=== PATIENT | female | born 1950 | race Caucasian/White ===

== ENCOUNTER 2020-03-25 07:29 | Day surgery (SDC) | payer MEDICARE, BC ==
[2020-03-25] MEDS ORDERED: Midazolam 1 MG/ML 2 ML SDV IV ONE (07:30)
[2020-03-25] MEDS ORDERED: Sodium Chloride 0.9% 10 ML Syringe FLUSH PRN (07:30)
[2020-03-25] MEDS ORDERED: Glycopyrrolate 0.2 MG/ML 5 ML MDV IV ONE (07:30)
[2020-03-25] MEDS ORDERED: fentaNYL 100 MCG/2 ML SDV IV ONE (07:30)
[2020-03-25] MEDS ORDERED: Ondansetron 4 MG/2 ML SDV IVPUSH ONE (07:30)
[2020-03-25] MEDS ORDERED: Rocuronium 50 MG/5 ML Vial IV ONE (07:30)
[2020-03-25] MEDS ORDERED: Ketorolac 30 MG/ML SDV IVPUSH ONE (07:30)
[2020-03-25] MEDS ORDERED: diphenhydrAMINE 50 MG/ML SDV IVPUSH ONE (07:30)
[2020-03-25] MEDS ORDERED: Dexamethasone 4 MG/ML 5 ML MDV IVPUSH ONE (07:30)
[2020-03-25] MEDS ORDERED: Neostigmine Methylsulfate 10 MG/10 ML MDV IVPUSH ONE (07:30)
[2020-03-25] MEDS ORDERED: Propofol 200 MG/20 ML SDV IV ONE (07:30)
[2020-03-25] MEDS: Lactated Ringers 1,000 ML IV SCH (07:58)
[2020-03-25] MEDS: cefOXitin 1 GM Vial IVPUSH ONE (09:35)
[2020-03-25] MEDS: Bupivacaine 0.5% 30 ML SDV INJECT ONE (10:00)
[2020-03-25] MEDS: Lidocaine 1% with EPINEPHrine 1:100,000 20 ML MDV INJECT ONE (10:00)
--- NOTE | 2020-03-25 10:58 | PCM.OPNOTE ---
- General Post-Op/Procedure Note Date of Surgery/Procedure: 03/25/20 Operative Procedure(s): lap cholecystectomy Findings: critical view obtained. normal size cystic duct cholelithiasis Pre Op Diagnosis: cholecystitis without infection or obstruction Post-Op Diagnosis: Same Anesthesia Technique: General ET Tube, Local (6 ml 1 % lido with epi/0.5% buvipicaine) Primary Surgeon: Kaiden Burns Anesthesia Provider: Mee Barriga Pathology: gallbladder and contents EBL in mLs: 10 Complications: None Condition: Good Free Text/Narrative:: see dictation #[id number]
[2020-03-25 12:27] VITALS: BP 121/70; PULSE 58
--- NOTE | 2020-03-25 13:24 | OR ---
DATE OF OPERATION: 03/25/2020 SURGEON: Kaiden Burns MD PROCEDURE PERFORMED: Laparoscopic cholecystectomy. PREOPERATIVE DIAGNOSIS: Cholelithiasis without cholecystitis or obstruction. POSTOPERATIVE DIAGNOSIS: Cholelithiasis without cholecystitis or obstruction. INDICATIONS FOR PROCEDURE: This is a 69-year-old white female, who essentially had a history of some vague abdominal discomfort in the epigastric region. She is noted on ultrasound rather to have a gallbladder packed with gallstones. Initially, it was thought her symptoms were consistent with constipation. However, the constipation has been successfully treated, and the patient continues to have this abdominal discomfort in the epigastric region. She is therefore offered and accepted a laparoscopic cholecystectomy. DESCRIPTION OF OPERATION: After an excellent general anesthetic was administered via endotracheal tube, the patient was prepped and draped in usual sterile manner. A 1:1 mixture of 1% lidocaine with epinephrine and 0.5% bupivacaine was used to infiltrate the area just above the umbilicus. A #15 scalpel blade was carried out to make an incision. Blunt dissection was then carried out to expose the midline fascia, and 2 stay sutures of 0 Vicryl were placed on either side of midline fascia which was then elevated. The fascia was incised, and the abdominal cavity was entered. After digital palpation to ensure no adhesions, a 10.5 balloon Sakina trocar was inserted into the patient's abdomen, which was then insufflated to 15 mmHg using carbon dioxide. Under direct visualization, three 5 mm ports were placed, 1 in the midline epigastrium and 2 below the right costal margin. This was done by infiltrating more local, making a stab incision with a #15 scalpel blade and then inserting the trocars. Having been mentioned, 6 mL of the local mixture was used. The gallbladder was then grasped. There were some thin filmy adhesions on the dome of the gallbladder between the gallbladder and the colon. These were carefully taken down using sharp dissection. The colon was carefully inspected. After removing the adhesions, there was no evidence of any injury to the intestinal wall and lifting up the adhesions, there was plenty of distance between the colon and the adhesions itself. We were able to grab the infundibulum, and then using a Layne dissector, blunt dissection was carried out exposing the cystic duct. There was a blood vessel anterior to the cystic duct, and in dissecting this blood vessel, which was roughly a millimeter in diameter, it was avulsed. There was arterial bleeding encountered. This was judiciously handled by careful placement of 2 clips after grasping the bleeding end. Further dissection failed to reveal any other vessel that could be identified as the cystic artery, so this appeared to be an aberrant vessel. After confirming the diagnosis of the cystic duct, 2 clips were placed proximally on the cystic duct and 1 distally. The cystic duct was then transected. Careful L-hook cautery dissection was then carried out dissecting the gallbladder free from the gallbladder fossa. The specimen was passed into a specimen bag and delivered out through the umbilical port. We did have to extend the fascial incision slightly as well as the skin incision to deliver the contents. This was done without difficulty. After delivering the gallbladder, the fascial defect was partially closed with a mqqhnk-sw-yahzw 0 Vicryl to allow us to reinsert the Sakina trocar and resume our peritoneum. The area was irrigated. The gallbladder fossa itself was free of any bleeding; however, there were several small bleeding points noted along where the adhesions had been taken down from the cystic duct and cystic artery as well as along the colon where the filmy adhesions had been taken down. Jess AH was then applied to these areas with excellent hemostasis, and this was catalog number [id number], lot #[id number] with an expiration date of 03/09/2022. After assuring that there was no further bleeding, the trocars were removed. After the patient was flattened out, the pneumoperitoneum was released. The fascial defect in the periumbilical area was closed with a qnmkso-ya-vjqui 0 Vicryl, 4-0 Vicryl was used to close the skin. Needle, sponge, and instrument counts were reported as correct. The patient was taken to Recovery in good condition. /[id number] /MODL
== END 2020-03-25 12:05 | disposition home or self-care (01) ==
LOC: FB.SDS 07:29
PROVIDERS: ATTEND Surgery
DX: K80.10 Calculus of gallbladder with chronic cholecystitis without obstruction (principal); E03.9 Hypothyroidism, unspecified; Z79.890 Hormone replacement therapy; Z79.899 Other long term (current) drug therapy; Z88.8 Allergy status to other drugs, medicaments and biological substances; Z87.891 Personal history of nicotine dependence
CPT/HCPCS: 00790; 47562; 88304; 94150; J0694; J1100; J1200; J1885; J2250; J2405; J2704; J2710; J3010; J3490; J7120

== ENCOUNTER 2020-06-10 07:22 | Day surgery (SDC) | payer MEDICARE, BC ==
[2020-06-10] MEDS ORDERED: Propofol 200 MG/20 ML SDV IV ONE (07:23)
[2020-06-10] MEDS ORDERED: Sodium Chloride 0.9% 10 ML Syringe FLUSH PRN (07:30)
[2020-06-10] MEDS ORDERED: Lactated Ringers 1,000 ML IV SCH (07:30)
--- NOTE | 2020-06-10 09:24 | PCM.OPNOTE ---
- General Post-Op/Procedure Note Date of Surgery/Procedure: 06/10/20 Operative Procedure(s): c scope with cold forceps biopsy Findings: descending colon polyp Pre Op Diagnosis: hx of colon polyps Post-Op Diagnosis: descending colon polyp Anesthesia Technique: MAC Primary Surgeon: Kaiden Burns Anesthesia Provider: Camacho Judd Pathology: colon polyp descending colon Complications: None Condition: Good Free Text/Narrative:: see dictation
[2020-06-10 10:06] VITALS: BP 136/72; PULSE 64
--- NOTE | 2020-06-10 11:30 | OR ---
DATE OF OPERATION: 06/10/2020 SURGEON: Kaiden Burns MD PROCEDURE PERFORMED: Colonoscopy with cold forceps biopsy. PREOPERATIVE DIAGNOSIS: Personal history of colon polyps. POSTOPERATIVE DIAGNOSIS: Polyp of the descending colon. INDICATIONS FOR PROCEDURE: This is a 69-year-old white female who has had a history of colon polyps in the past. She presents now for followup scope. DESCRIPTION OF OPERATION: After an excellent IV sedation was administered, digital rectal exam was performed. No marked abnormality was noted. Flexible colonoscope was inserted and advanced to the cecum. The prep, there were areas of liquid stool. We were, however, able to irrigate it completely and get an excellent view of the colonic mucosa. After identifying the cecum by its usual anatomic markers as well as noting the light through the right lower quadrant, the scope was slowly withdrawn. The following findings were noted. Ascending colon unremarkable. Transverse colon unremarkable. Descending colon, at the distal descending colon, small 5 mm polyp, biopsied with cold biopsy forceps and sent for permanent. Sigmoid and rectum unremarkable. The patient tolerated procedure well, was taken to recovery. Results will be sent via letter. /[id number] /MODL
== END 2020-06-10 10:09 | disposition home or self-care (01) ==
LOC: FB.SDS 07:22
PROVIDERS: ATTEND Surgery
DX: Z12.11 Encounter for screening for malignant neoplasm of colon (principal); D12.4 Benign neoplasm of descending colon; E03.9 Hypothyroidism, unspecified; Z79.899 Other long term (current) drug therapy; Z88.8 Allergy status to other drugs, medicaments and biological substances; Z90.49 Acquired absence of other specified parts of digestive tract; Z98.890 Other specified postprocedural states; Z87.891 Personal history of nicotine dependence
CPT/HCPCS: 00812-QZ; 88305; J2704; J7120

== ENCOUNTER 2021-10-01 16:49 | Emergency (ER) | payer MEDICARE, BC ==
[2021-10-01 17:46] LABS: ESTIMATED GFR 49 mL/min (>60)
[2021-10-01 18:07] VITALS: BP 132/69; PULSE 62
[2021-10-01] MEDS ORDERED: Potassium Chloride 20 MEQ Tab.ER PO ONE (18:16)
== END 2021-10-01 19:00 | disposition home or self-care (01) ==
LOC: FB.ED 16:49
DX: R53.81 Other malaise (principal); E87.6 Hypokalemia; E87.0 Hyperosmolality and hypernatremia; R94.6 Abnormal results of thyroid function studies; R82.81 Pyuria; E03.9 Hypothyroidism, unspecified; Z88.8 Allergy status to other drugs, medicaments and biological substances; Z79.899 Other long term (current) drug therapy
CPT/HCPCS: 36415; 80048; 81001; 83735; 84443; 84484; 85027; 87086; 99284; A9270; 99285

== ENCOUNTER 2021-12-14 06:40 | Emergency (ER) | payer MEDICARE, BC ==
[2021-12-16 05:19] LABS: ESTIMATED GFR 37 mL/min (>60)
[2021-12-16 05:20] LABS: ACETAMINOPHEN < 2 ug/mL (<2)
== END 2021-12-14 14:50 ==
LOC: FB.ED 06:40
DX: T50.992A Poisoning by other drugs, medicaments and biological substances, intentional self-harm, initial encounter (principal); Z20.822 Contact with and (suspected) exposure to COVID-19
CPT/HCPCS: 36415; 80053; 80143; 80179; 80307; 81001; 84443; 85025; 93005; 96372; 99285; U0002

== ENCOUNTER 2023-04-16 09:26 | Emergency (ER) | payer MEDICARE, BC ==
[2023-04-16] MEDS ORDERED: Sodium Chloride 0.9% 10 ML Syringe FLUSH PRN (09:35)
[2023-04-16 09:36] VITALS: BP 147/65; PULSE 75
[2023-04-16] MEDS ORDERED: Naloxone 0.4 MG/ML SDV IVPUSH PRN (09:36)
[2023-04-16] MEDS: Morphine 4 MG/ML VIAL IVPUSH ONE (09:49)
[2023-04-16 09:50] LABS: BASOPHILS PERCENT AUTO 0.4 % (0.2-1.5); HEMATOCRIT 36.6 % (34.2-48.2); HEMOGLOBIN 12.2 g/dL (11.4-15.5); LYMPHOCYTES PERCENT AUTO 7.4 % (18.4-52.1); MEAN CORPUSCULAR HEMOGLOBIN 32.2 pg (23.9-33.9); MEAN CORPUSCULAR HGB CONC 33.4 g/dL (31.9-34.8); MEAN CORPUSCULAR VOLUME 96.3 fL (76.7-100.5); MONOCYTES ABSOLUTE AUTO 1.3 x10-3/uL (0.3-1.0); MONOCYTES PERCENT AUTO 9.6 % (4.4-15.7); NEUTROPHILS ABSOLUTE AUTO 10.8 x10-3/uL (1.5-6.3); NEUTROPHILS PERCENT AUTO 82.6 % (30.8-76.2); PLATELET COUNT,PLT 171 x10(3)uL (151-488); WHITE BLOOD CELL COUNT,WBC 13.1 x10-3/uL (3.0-10.3)
[2023-04-16 09:53] LABS: BLOOD UREA NITROGEN,BUN 19 mg/dL (7-18); BUN/CREATININE RATIO 13.6 (9-20); CALCIUM 9.1 mg/dL (8.6-10.2); CARBON DIOXIDE,CO2 21 mmol/L (21-32); CHLORIDE,CL 113 mmol/L (100-110); CREATININE 1.4 mg/dL (0.55-1.02); EST CRCL DRUG DOSING (CG) 26.86 mL/min; ESTIMATED GFR 40 mL/min (>60); GLUCOSE RANDOM 196 mg/dL (80-116); POTASSIUM,K 3.3 mmol/L (3.5-5.3); SODIUM,NA 149 mmol/L (135-145)
[2023-04-16 09:58] LABS: INR 1.05 (1.00-1.24); PROTHROMBIN TIME 10.9 sec (9.0-11.1)
[2023-04-16 09:59] LABS: ALANINE AMINOTRANSFERASE,ALT 25 U/L (12-36); ALKALINE PHOSPHATASE 75 IU/L (56-112); ASPARTATE AMNIOTRANSFERASE,AST 6 IU/L (5-25); BILIRUBIN TOTAL 0.3 mg/dL (0.1-1.3)
[2023-04-16] MEDS: Sodium Chloride 0.45% 1,000 ML IV SCH (11:17)
== END 2023-04-16 13:35 | disposition home or self-care (01) ==
LOC: FB.ED 09:26
DX: S42.231A 3-part fracture of surgical neck of right humerus, initial encounter for closed fracture (principal); E86.0 Dehydration; E87.6 Hypokalemia; N18.9 Chronic kidney disease, unspecified; E03.9 Hypothyroidism, unspecified; Z86.16 Personal history of COVID-19; Z88.8 Allergy status to other drugs, medicaments and biological substances; Z79.899 Other long term (current) drug therapy; Z87.891 Personal history of nicotine dependence; W10.8XXA Fall (on) (from) other stairs and steps, initial encounter
CPT/HCPCS: 73030-RT; 80053; 85025; 85610; 85730; 96361; 96374; 99283-25; 99284; J2270; J7030